=== PATIENT | female | born 2000 | race Caucasian/White ===

== ENCOUNTER 2023-09-22 13:55 | Outpatient (AMB) | payer OTHER, SELFPAY ==
--- NOTE | 2023-09-22 14:01 | A.OFFPC_ITS ---
Vital Signs 09/22/23 14:03 Height 5 ft 2 in Weight 135 lb BMI 24.7 BP 122/62 Blood Pressure Location Lt brachial Position Sitting Pulse 54 Pulse Source Pulse Oximeter Pulse Oximetry (%) 99 Oxygen Delivery Method Room Air Intake Visit Reasons: FRY COOK transfer care from [facility] Note: Patient is a new patient here to establish care for physical. Transferring care from [facility]. Medical records have not been requested and have not received. Neonatal Intensive Care Nurse Required: No Amusement Machine Mechanic: Not Required per policy Accompanied by: Self / Same As Patient Allergies Penicillins Allergy (Intermediate, Verified 09/22/23 14:11) Hives Medication List - Last Reconciled 09/22/23 by SHANNON Orocso No Known Home Meds Tobacco use date assessed: 09/22/23 Dental Screening Dental Screen Date: 09/22/23 Did you have a dental visit in the last 12 months?: Yes Did you have a dental problem in the last 6 months where you did not have access to dental care?: No Was dental information given to patient?: Patient has dentist HPI HPI Comments History of Present Illness Details 21-year-old female new patient presents today for physical exam. No significant medical or surgical history. Patient denies any acute concerns. Denies any chest pain, palpitations, shortness of breath or syncope. Denies any history of anxiety or depression. Eye exam: 1-2 years recommended pap smear: last week [facility]. Discussed routine labs with patient, given patient has no acute concerns as overall healthy with no pertinent medical history would like to defer blood work at this time. [facility]. 5 years ago. Patient completing trigger release in office today to obtain medical records. Patient declined flu shot. [facility] Surgical History History of wisdom tooth extraction Social History Housing: Apartment Alcohol intake: current Alcohol intake frequency: a few times a month Patient Tobacco Use Status: Never used Tobacco e-Cigarette/Vaping Use: Never Used Second Hand Smoke Exposure: No service: No Current occupational status: employed Current occupation: Cognitive needs: No Hearing needs: No Vision needs: Yes (glasses, contacts) Questionnaire PHQ-9 Over the last 2 weeks, how often have you been bothered by any of the following problems? 1. Little interest or pleasure in doing things: not at all 2. Feeling down, depressed, or hopeless: not at all 3. Trouble falling or staying asleep, or sleeping too much: not at all 4. Feeling tired or having little energy: not at all 5. Poor appetite or overeating: not at all 6. Feeling bad about yourself - or that you are a failure or have let yourself or your family down: not at all 7. Trouble concentrating on things, such as reading the newspaper or watching television: not at all 8. Moving or speaking so slowly that other people could have noticed. Or the opposite - being so fidgety or restless that you have been moving around a lot more than usual: not at all 9. Thoughts that you would be better off or of hurting yourself in some way: not at all Total score: 0 Depression Screening Interpretation: Negative Depression Screening Done: Yes 36061 - PHQ-9 Billing: Yes Source: Developed by Drs. Chris Mcmillan, aSra Zuleta, Giorgio Thornton and colleagues, with an educational jose carlos from [email or web address]. Thrive Questionnaire Date Thrive assessed: 09/22/23 I am a: Patient What is your living situation today?: I have a steady place to live Within the past 12 months, did the food you bought not last and you didn't have the money to get more?: Never true Within the past 12 months, did you worry whether your food would run out before you got money to buy more?: Never true Do you have trouble paying for medicines?: No Do you have trouble getting transportation to medical appointments?: No Do you have trouble paying your heating and electricity bill?: No Do you have trouble taking care of your child, family member or friend?: No Do you have trouble with day-to-day activities such as bathing, preparing meals, shopping, managing finances, etc.?: No Are you currently unemployed and looking for a job?: No Are you interested in more education?: No Currently or been in a relationship where the following occur: no concerns reported AUDIT C Alcohol Use Questionnaire (AUDIT-C) 1. How often do you have a drink containing alcohol?: Monthly or less Total Score: 1 BYRON-7 AMB Questionnaire BYRON-7 Date BYRON - 7 assessed: 09/22/23 Feeling nervous, anxious, or on edge: 0 = Not at all Not being able to stop or control worryin = Not at all Worrying too much about different things: 0 = Not at all Trouble relaxin = Not at all Being so restless that it is hard to sit still: 0 = Not at all Becoming easily annoyed or irritable: 0 = Not at all Feeling afraid as if something awful might happen: 0 = Not at all Total BYRON-7 score (0-4 normal; 5-9 mild; 10-14 moderate; 15-21 severe): 0 Source: Developed by Drs. Chris Mcmillan, Sara Zuleta, Giorgio Thornton and colleagues, with an educational jose carlos from [email or web address]. BYRON-7 Assessment Billing BYRON-7 Assessment Tool: BYRON-7 Assessment 01891 Review of Systems Const Denies chills, Denies fatigue, Denies fever(s) and Denies poor appetite Eyes Denies no additional complaints ENT Reports Normal hearing present Card Denies chest pain, Denies syncope, Denies rapid heart rate and Denies dyspnea Resp Denies cough and Denies dyspnea GI Denies change in stool character, Denies constipation, Denies diarrhea, Denies nausea and Denies vomiting Denies urinary frequency, Denies dysuria and Denies urinary urgency Neuro Reports Normal hearing present, Denies confusion and Denies syncope Psych Denies confusion Endo Denies fatigue Physical exam (Primary Care) Vital Signs: Last Vital Signs Pulse 54 09/22/23 14:03 BP 122/62 09/22/23 14:03 Pulse Ox 99 09/22/23 14:03 Oxygen Delivery Method Room Air 09/22/23 14:03 BMI result Body Mass Index 24.7 Tobacco/Smoking Status: Tobacco use Status Tobacco use date assessed 09/22/23 09/22/23 14:09 Patient Tobacco Use Status Never used Tobacco 09/22/23 14:09 e-Cigarette/Vaping Use Never Used 09/22/23 14:09 PHQ-9: PHQ-9 Score PHQ-9: Total score 0 09/22/23 14:09 Depression Screening Interpretation: Negative Thrive Assessment: Date of Thrive Assessment Date Thrive assessed 09/22/23 09/22/23 14:09 Currently or been in a relationship where the following occur: no concerns reported Const General: No confusion Orientation/consciousness: No confusion HENMT Head: Yes normocephalic and Yes atraumatic Eyes Conjunctivae: conjunctivae normal Chest Chest palpation & inspection: normal inspection of the chest Resp Effort & Inspection: normal respiratory effort Auscultation: clear to auscultation bilaterally, no crackles, no rhonchi and no wheezes Cardio Rate: regular rate Rhythm: regular rhythm Heart sounds: S1 normal heart sound present and S2 normal heart sound present GI Inspection: Yes normal to inspection Neuro General: No confusion Cranial nerves: Yes Normal hearing present Extrem General: No edema Assessment and Plan Assessment & Plan (1) Physical exam, annual: Code(s): Z00.00 - Encounter for general adult medical examination without abnormal findings Plan: Follow-up in 1 year for annual exam. Coding Level of Care Code New Pt Prev Care 18-39yr(22171 Diagnoses Physical exam, annual Z00.00 Additional Codes BYRON-7 Assessment Billing - BYRON-7 Assessment Tool: BYRON-7 Assessment 00635 ([id number])
[2023-09-22 14:03] VITALS: BP 122/62; PULSE 54; O2SAT 99; BMI 24.7
== END 2023-09-22 14:27 | disposition home or self-care (01) ==
PROVIDERS: PCP Hospitalist; Visit Provider Nurse Practitioner Family
DX: Z00.00 Encounter for general adult medical examination without abnormal findings (principal)
CPT/HCPCS: 99385

== ENCOUNTER 2024-04-15 15:37 | Outpatient (AMB) | payer OTHER, SELFPAY ==
--- NOTE | 2024-04-15 15:39 | A.OFFPC_ITS ---
Vital Signs 04/15/24 15:40 Height 5 ft 2 in Weight 136 lb BMI 24.9 BP 110/70 Blood Pressure Location Lt brachial Position Sitting Intake Visit Reasons: Transfer care Roll Plugger Required: No Accompanied by: Self / Same As Patient Allergies Penicillins Allergy (Intermediate, Verified 04/15/24 15:44) Hives Medication List - Last Reconciled 04/15/24 by Katlin Stacy MD No Known Home Meds Tobacco use date assessed: 04/15/24 Dental Screening Dental Screen Date: 04/15/24 Did you have a dental visit in the last 12 months?: Yes Did you have a dental problem in the last 6 months where you did not have access to dental care?: No Was dental information given to patient?: Patient has dentist HPI HPI Comments History of Present Illness Details This is a 23-year-old female that comes for a sunburn that happened yesterday. No blisters. No other acute complaints. [facility] Surgical History History of wisdom tooth extraction Social History (Updated 04/15/24 @ 15:47 by Katlin Stacy MD) Housing: Apartment Alcohol intake: current Alcohol intake frequency: a few times a month Alcohol type: hard liquor Patient Tobacco Use Status: Never used Tobacco e-Cigarette/Vaping Use: Never Used Second Hand Smoke Exposure: No service: No Current occupational status: employed Current occupation: Current occupational exposures/hazards: No Cognitive needs: No Hearing needs: No Vision needs: Yes (glasses, contacts) Questionnaire PHQ-9 Over the last 2 weeks, how often have you been bothered by any of the following problems? 1. Little interest or pleasure in doing things: not at all 2. Feeling down, depressed, or hopeless: not at all 3. Trouble falling or staying asleep, or sleeping too much: not at all 4. Feeling tired or having little energy: not at all 5. Poor appetite or overeating: not at all 6. Feeling bad about yourself - or that you are a failure or have let yourself or your family down: not at all 7. Trouble concentrating on things, such as reading the newspaper or watching television: not at all 8. Moving or speaking so slowly that other people could have noticed. Or the opposite - being so fidgety or restless that you have been moving around a lot more than usual: not at all 9. Thoughts that you would be better off or of hurting yourself in some way: not at all Total score: 0 Source: Developed by Drs. Chris Mcmillan, Sara Zuleta, Giorgio Thornton and colleagues, with an educational jose carlos from [employer]. Thrive Questionnaire Date Thrive assessed: 04/15/24 I am a: Patient What is your living situation today?: I have a steady place to live Within the past 12 months, did the food you bought not last and you didn't have the money to get more?: Never true Within the past 12 months, did you worry whether your food would run out before you got money to buy more?: Never true Do you have trouble paying for medicines?: No Do you have trouble getting transportation to medical appointments?: No Do you have trouble paying your heating and electricity bill?: No Do you have trouble taking care of your child, family member or friend?: No Do you have trouble with day-to-day activities such as bathing, preparing meals, shopping, managing finances, etc.?: No Are you currently unemployed and looking for a job?: No Are you interested in more education?: No Please select the resources that you would like help with: None Currently or been in a relationship where the following occur: no concerns reported THRIVE Score: 0 AUDIT C Alcohol Use Questionnaire (AUDIT-C) 1. How often do you have a drink containing alcohol?: Monthly or less 2. How many drinks containing alcohol do you have on a typical day when you are drinking?: 1 or 2 3. How often do you have six or more drinks on one occasion?: Never Total Score: 1 BYRON-7 AMB Questionnaire BYRON-7 Date BYRON - 7 assessed: 04/15/24 Feeling nervous, anxious, or on edge: 0 = Not at all Not being able to stop or control worryin = Not at all Worrying too much about different things: 0 = Not at all Trouble relaxin = Not at all Being so restless that it is hard to sit still: 0 = Not at all Becoming easily annoyed or irritable: 0 = Not at all Feeling afraid as if something awful might happen: 0 = Not at all Total BYRON-7 score (0-4 normal; 5-9 mild; 10-14 moderate; 15-21 severe): 0 Source: Developed by Drs. Chris Mcmillan, Sara Zuleta, Giorgio Thornton and colleagues, with an educational jose carlos from [employer]. Review of Systems Const All systems reviewed & are unremarkable except as noted in HPI and below Card Denies chest pain at rest, Denies chest pain with activity, Denies edema, Denies irregular heart rhythm, Denies claudication, Denies dyspnea, Denies dyspnea on exertion, Denies orthopnea, Denies paroxysmal nocturnal dyspnea and Denies slow heart rate Resp Denies cough, Denies dyspnea and Denies dyspnea on exertion Physical exam (Primary Care) Vital Signs: Last Vital Signs BP 110/70 04/15/24 15:40 BMI result Body Mass Index 24.9 Tobacco/Smoking Status: Tobacco use Status Tobacco use date assessed 04/15/24 04/15/24 15:44 Patient Tobacco Use Status Never used Tobacco 04/15/24 15:47 e-Cigarette/Vaping Use Never Used 04/15/24 15:47 PHQ-9: PHQ-9 Score PHQ-9: Total score 0 04/15/24 15:44 Thrive Assessment: Date of Thrive Assessment Date Thrive assessed 04/15/24 04/15/24 15:44 Currently or been in a relationship where the following occur: no concerns reported Resp Effort & Inspection: normal respiratory effort Auscultation: clear to auscultation bilaterally Cardio Jugular venous distension: no JVD Rate: regular rate Rhythm: regular rhythm Heart sounds: S1 normal heart sound present and S2 normal heart sound present Skin Other: sunburn Neuro General: no focal motor deficits Assessment and Plan Assessment & Plan (1) Sunburn: Code(s): L55.9 - Sunburn, unspecified Plan: Advised to apply aloe vera topically. Coding Level of Care Code Est Pt Level 3 (23766) Diagnoses Sunburn L55.9 Time Spent (min) 15
[2024-04-15 15:40] VITALS: BP 110/70; BMI 24.9
== END 2024-04-15 15:52 | disposition home or self-care (01) ==
PROVIDERS: PCP Nurse Practitioner Family; Visit Provider Internal Medicine
DX: L55.9 Sunburn, unspecified (principal)
CPT/HCPCS: 99213

== ENCOUNTER 2024-09-20 15:41 | Outpatient (AMB) | payer OTHER, SELFPAY ==
--- NOTE | 2024-09-20 15:56 | A.OFFPC_ITS ---
Vital Signs 09/20/24 15:57 Height 5 ft 2 in Weight 136 lb BMI 24.9 BP 112/70 Blood Pressure Location Lt brachial Position Sitting Intake Visit Reasons: PE Intake Note: Patient here for a physical exam Utilization Supervisor Required: No Accompanied by: Self / Same As Patient Allergies Penicillins Allergy (Intermediate, Verified 09/20/24 16:11) Hives Medication List - Last Reconciled 09/20/24 by Katlin Stacy MD No Known Home Meds Tobacco use date assessed: 04/15/24 Dental Screening Dental Screen Date: 04/15/24 HPI HPI Comments History of Present Illness Details This is a 24-year-old female that comes for her physical exam. Pap smear done 2023 and as per patient was normal. No acute complaints. Declines flu vaccine. [facility] Surgical History History of wisdom tooth extraction Social History Housing: Apartment Alcohol intake: current Alcohol intake frequency: a few times a month Alcohol type: hard liquor Patient Tobacco Use Status: Never used Tobacco e-Cigarette/Vaping Use: Never Used Second Hand Smoke Exposure: No service: No Current occupational status: employed Current occupation: Current occupational exposures/hazards: No Cognitive needs: No Hearing needs: No Vision needs: Yes (glasses, contacts) Questionnaire PHQ-9 Over the last 2 weeks, how often have you been bothered by any of the following problems? 1. Little interest or pleasure in doing things: several days 2. Feeling down, depressed, or hopeless: several days 3. Trouble falling or staying asleep, or sleeping too much: not at all 4. Feeling tired or having little energy: several days 5. Poor appetite or overeating: not at all 6. Feeling bad about yourself - or that you are a failure or have let yourself or your family down: more than half the days 7. Trouble concentrating on things, such as reading the newspaper or watching television: not at all 8. Moving or speaking so slowly that other people could have noticed. Or the opposite - being so fidgety or restless that you have been moving around a lot more than usual: not at all 9. Thoughts that you would be better off or of hurting yourself in some way: not at all Total score: 5 Depression Screening Interpretation: Positive Depression Screening Follow-up: Existing condition and Follow-up Visit Requested Depression Screening Done: Yes 57438 - PHQ-9 Billing: Yes Source: Developed by Drs. Chris Mcmillan, Sara Zuleta, Giorgio Thornton and colleagues, with an educational jose carlos from [employer]. Thrive Questionnaire Date Thrive assessed: 09/20/24 I am a: Patient What is your living situation today?: I have a steady place to live Within the past 12 months, did the food you bought not last and you didn't have the money to get more?: Never true Within the past 12 months, did you worry whether your food would run out before you got money to buy more?: Never true Do you have trouble paying for medicines?: No Do you have trouble getting transportation to medical appointments?: No Do you have trouble paying your heating and electricity bill?: No Do you have trouble taking care of your child, family member or friend?: No Do you have trouble with day-to-day activities such as bathing, preparing meals, shopping, managing finances, etc.?: No Are you currently unemployed and looking for a job?: No Are you interested in more education?: No Please select the resources that you would like help with: None Currently or been in a relationship where the following occur: No concerns reported THRIVE Score: 0 AUDIT C Alcohol Use Questionnaire (AUDIT-C) 1. How often do you have a drink containing alcohol?: Monthly or less 2. How many drinks containing alcohol do you have on a typical day when you are drinking?: 1 or 2 3. How often do you have six or more drinks on one occasion?: Never Total Score: 1 Score Reviewed/Action Taken: No BYRON-7 AMB Questionnaire BYRON-7 Date BYRON - 7 assessed: 09/20/24 Feeling nervous, anxious, or on edge: 0 = Not at all Not being able to stop or control worryin = Not at all Worrying too much about different things: 0 = Not at all Trouble relaxin = Not at all Being so restless that it is hard to sit still: 0 = Not at all Becoming easily annoyed or irritable: 0 = Not at all Feeling afraid as if something awful might happen: 0 = Not at all Total BYRON-7 score (0-4 normal; 5-9 mild; 10-14 moderate; 15-21 severe): 0 Source: Developed by Drs. Chris Mcmillan, Sara Zuleta, Giorgio Thornton and colleagues, with an educational jose carlos from [employer]. BYRON-7 Assessment Billing BYRON-7 Assessment Tool: BYRON-7 Assessment 05995 Review of Systems Const All systems reviewed & are unremarkable except as noted in HPI and below Card Denies chest pain at rest, Denies chest pain with activity, Denies edema, Denies irregular heart rhythm, Denies claudication, Denies dyspnea, Denies dyspnea on exertion, Denies orthopnea, Denies paroxysmal nocturnal dyspnea and Denies slow heart rate Resp Denies cough, Denies dyspnea and Denies dyspnea on exertion Neuro Denies lack of coordination Physical exam (Primary Care) Vital Signs: Last Vital Signs BP 112/70 09/20/24 15:57 BMI result Body Mass Index 24.9 Tobacco/Smoking Status: Tobacco use Status Tobacco use date assessed 04/15/24 09/20/24 16:01 Patient Tobacco Use Status Never used Tobacco 09/20/24 16:01 e-Cigarette/Vaping Use Never Used 09/20/24 16:01 PHQ-9: PHQ-9 Score PHQ-9: Total score 5 09/20/24 16:01 Depression Screening Interpretation: Positive Depression Screening Follow-up: Existing condition and Follow-up Visit Requested Thrive Assessment: Date of Thrive Assessment Date Thrive assessed 09/20/24 09/20/24 16:01 Currently or been in a relationship where the following occur: No concerns reported [facility] Head: Yes normal to inspection, Yes normocephalic and Yes atraumatic Ears: external ears normal Eyes General: appearance normal, both eyes and all related structures Eyelids: Yes eyelids normal Conjunctivae: conjunctivae normal Neck Neck: Yes normal visual inspection and Yes supple Resp Effort & Inspection: normal respiratory effort Auscultation: clear to auscultation bilaterally Cardio Jugular venous distension: no JVD Rate: regular rate Rhythm: regular rhythm Heart sounds: S1 normal heart sound present and S2 normal heart sound present GI Inspection: Yes normal to inspection Palpation (GI): Soft to palpation and nontender Auscultation: normal bowel sounds Skin General skin exam: no rashes or lesions noted Neuro General: no focal motor deficits Extrem General: Yes full ROM Psych Appearance: grossly normal Office Procedures Flu Questionnaire Does the patient have a severe egg allergy?: No Immunizations Fluarix Triv [id number] (PF) 45 mcg (15 mcg x 3)/0.5 mL IM syringe Performing Provider: Katlin Stacy MD [facility] [place] [facility] Documented (not given) by: SANTHOSH Stovall on 09/20/24 16:01 Reason Not Given: Patient Refused Coding Level of Care Code Est Pt Prev Care 18-39y(77997) Diagnoses Physical exam Z00.00 Additional Codes PHQ-9 - 53061 - PHQ-9 Billing: Yes ([id number]) BYRON-7 Assessment Billing - BYRON-7 Assessment Tool: BYRON-7 Assessment 64425 ([id number]) Time Spent (min) 30 Assessment & Plan Assessment & Plan (1) Physical exam: Code(s): Z00.00 - Encounter for general adult medical examination without abnormal findings Category: Medical Plan: Repeat in a year. Orders: Orders Influenza [id number] Immunization Today Z23 - Encounter for immunization Comprehensive Safety [place]. Panel Fast Today Z00.00 - Encounter for general adult medical examination without abnormal findings Lipid Panel Today Z00.00 - Encounter for general adult medical examination without abnormal findings
[2024-09-20 15:57] VITALS: BP 112/70; BMI 24.9
== END 2024-09-20 16:19 | disposition home or self-care (01) ==
PROVIDERS: PCP Nurse Practitioner Family; Visit Provider Internal Medicine
DX: Z00.00 Encounter for general adult medical examination without abnormal findings (principal); Z23 Encounter for immunization

== ENCOUNTER → 2024-09-20 15:41 | Outpatient (BNVA) | payer OTHER, SELFPAY | PROVIDERS: PCP Nurse Practitioner Family; Visit Provider Internal Medicine | DX: Z00.00 Encounter for general adult medical examination without abnormal findings (principal); Z28.21 Immunization not carried out because of patient refusal | CPT/HCPCS: 90471; 96127 ==

== ENCOUNTER 2024-10-12 07:39 | Outpatient (REF) | payer OTHER, SELFPAY ==
[2024-10-12 11:59] LABS: Alanine Aminotransferase 18 U/L (0-31); Albumin Level 4.5 g/dL (3.5-5.0); Alkaline Phosphatase 53 U/L (39-117); Anion Gap 9 (12-20); Aspartate Amino Transferase 36 U/L (5-31); Bilirubin Total 0.5 mg/dL (0.0-1.0); Blood Urea Nitrogen 16 mg/dL (9-16); Calcium 9.5 mg/dL (8.4-10.2); Carbon Dioxide 28 mmol/L (22-29); Chloride 104 mmol/L (96-108); Cholesterol 146 mg/dL (<200); Estimated Glomerular Filt Rate > 60; Glucose Fasting 85 mg/dL (60-99); HDL Cholesterol 48 mg/dL (>40); LDL Cholesterol Calculated 85 mg/dL (<100); Potassium 3.8 mmol/L (3.3-5.1); Sodium 137 mmol/L (135-145); Total Protein 7.1 g/dL (6.5-8.0); Triglycerides 68 mg/dL (<150)
== END 2024-10-12 07:40 | disposition home or self-care (01) ==
LOC: HO.WFDLDS 07:39
PROVIDERS: Visit Provider Internal Medicine
DX: Z00.00 Encounter for general adult medical examination without abnormal findings (principal)
CPT/HCPCS: 36415; 80053; 80061

== ENCOUNTER 2024-12-06 08:46 | Outpatient (REF) | payer OTHER, SELFPAY ==
[2024-12-06 12:06] LABS: Alanine Aminotransferase 15 U/L (0-31); Albumin Level 4.2 g/dL (3.5-5.0); Alkaline Phosphatase 57 U/L (39-117); Aspartate Amino Transferase 24 U/L (5-31); Bilirubin Direct 0.2 mg/dL (0.0-0.5); Bilirubin Total 0.4 mg/dL (0.0-1.0)
== END 2024-12-06 08:47 | disposition home or self-care (01) ==
LOC: HO.WFDLDS 08:46
PROVIDERS: Visit Provider Internal Medicine
DX: R74.01 Elevation of levels of liver transaminase levels (principal)
CPT/HCPCS: 36415; 80076